=== PATIENT | male | born 1985 | race African-American/Black ===

== ENCOUNTER 2016-10-06 08:48 | Emergency (ER) | payer SELFPAY ==
[2016-10-06] MEDS ORDERED: diphenhydrAMINE HCl 50 MG/ML 1 ML VIAL ONE (09:07)
[2016-10-06] MEDS ORDERED: predniSONE 20 MG TAB ONE (09:07)
== END 2016-10-06 10:06 | disposition home or self-care (01) ==
LOC: NAV ERS 08:48
DX: L50.9 Urticaria, unspecified (principal); F17.210 Nicotine dependence, cigarettes, uncomplicated
CPT/HCPCS: 96372; J1200; J7506

== ENCOUNTER 2017-07-15 09:33 | Emergency (ER) | payer SELFPAY ==
[2017-07-15] MEDS ORDERED: Ibuprofen 200 MG TAB ONE (10:55)
--- NOTE | 2017-07-15 12:10 | RAD ---
RIGHT FOOT 3 VIEWS: Date: 07/15/17 HISTORY: Patient's foot stepped on by a horse. FINDINGS: There are minimal arthritic changes of the first metatarsophalangeal joint. Soft tissue swelling is s een on the dorsum of the foot. No fracture. IMPRESSION: No evidence of fracture. POS: [facility]
== END 2017-07-15 11:15 | disposition home or self-care (01) ==
LOC: NAV ERS 09:33
DX: S90.31XA Contusion of right foot, initial encounter (principal); F17.210 Nicotine dependence, cigarettes, uncomplicated; W55.19XA Other contact with horse, initial encounter

== ENCOUNTER 2017-09-14 08:18 | Emergency (ER) | payer SELFPAY | END 2017-09-14 08:45 | disposition home or self-care (01) | LOC: NAV ERS 08:18 | DX: T16.1XXA Foreign body in right ear, initial encounter (principal); F17.210 Nicotine dependence, cigarettes, uncomplicated; X58.XXXA Exposure to other specified factors, initial encounter | CPT/HCPCS: 69200 ==

== ENCOUNTER 2018-02-27 18:39 | Emergency (ER) | payer SELFPAY ==
[2018-02-27] MEDS ORDERED: AMOXicillin 250 MG CAP ONE (19:28)
[2018-02-27] MEDS ORDERED: Ketorolac Tromethamine 60 MG/2 ML VIAL ONE (19:28)
== END 2018-02-27 19:41 | disposition home or self-care (01) ==
LOC: NAV ERS 18:39
DX: J01.10 Acute frontal sinusitis, unspecified (principal); F17.210 Nicotine dependence, cigarettes, uncomplicated
CPT/HCPCS: 96372; J1885

== ENCOUNTER 2018-06-19 15:10 | Emergency (ER) | payer SELFPAY | END 2018-06-19 15:35 | disposition home or self-care (01) | LOC: NAV ERS 15:10 | DX: N34.1 Nonspecific urethritis (principal); A59.9 Trichomoniasis, unspecified; F17.210 Nicotine dependence, cigarettes, uncomplicated | CPT/HCPCS: 99281 ==

== ENCOUNTER 2020-07-15 12:06 | Emergency (ER) | payer SELFPAY | END 2020-07-15 12:50 | disposition home or self-care (01) | LOC: NAV ERS 12:06 | DX: S23.41XA Sprain of ribs, initial encounter (principal); S01.01XD Laceration without foreign body of scalp, subsequent encounter; M54.5 Low back pain; F17.210 Nicotine dependence, cigarettes, uncomplicated; Y00.XXXA Assault by blunt object, initial encounter | CPT/HCPCS: 72100 ==

== ENCOUNTER 2024-03-16 21:58 | Emergency (ER) | payer OTHER | END 2024-03-16 23:38 | disposition short-term general hospital (02) | LOC: NAV ERS 21:58 | DX: T18.128A Food in esophagus causing other injury, initial encounter (principal); F16.90 Hallucinogen use, unspecified, uncomplicated; R03.0 Elevated blood-pressure reading, without diagnosis of hypertension; F17.210 Nicotine dependence, cigarettes, uncomplicated; W44.F3XA Food entering into or through a natural orifice, initial encounter; Y93.89 Activity, other specified | CPT/HCPCS: 70360; 71046; 99284 ==